=== PATIENT | male | born 1995 | race Two or more races ===

== ENCOUNTER 2017-10-28 22:12 | Emergency (ER) | payer SELFPAY | END 2017-10-29 03:37 | disposition left against medical advice (07) | LOC: ER 22:12 | DX: Z53.21 Procedure and treatment not carried out due to patient leaving prior to being seen by health care provider (principal) ==

== ENCOUNTER 2017-10-30 17:35 | Emergency (ER) | payer SELFPAY ==
[~2017-10-30] VITALS: Ht 177.8 cm; Wt 72.0 kg
[2017-10-30 17:55] VITALS: BP 122/71
== END 2017-10-31 03:00 | disposition left against medical advice (07) ==
LOC: ER 17:35
DX: Z53.21 Procedure and treatment not carried out due to patient leaving prior to being seen by health care provider (principal)